=== PATIENT | female | born 1995 | race Caucasian/White ===

== ENCOUNTER 2019-06-18 17:30 | Emergency (ER) | payer OTHER ==
[2019-06-18 19:04] LABS: ABS Eosinophils 0.1 10^3/ul (0-0.6); ABS Lymphocytes 2.6 10^3/ul (1.0-4.8); ABS Monocytes 0.6 10^3/ul (0-0.8); ABS Neutrophils 4.2 10^3/ul (1.5-7.7); Eosinophil % 0.8 %; Hematocrit 36 % (35-47); Hemoglobin 11.9 g/dL (12.0-16.0); Lymphocyte % 34.2 %; Mean Corpuscular HGB Conc 33 g/dL (31-36); Mean Corpuscular Hemoglobin 26 pg (27-31); Mean Corpuscular Volume 79 fL (80-97); Mean Platelet Volume 8.1 fL (7.4-10.4); Platelet Count 328 10^3/uL (150-450); Red Blood Count 4.58 10^6 /uL (3.70-4.87); Red Cell Distribution Width 16 % (10-15); White Blood Count 7.5 10^3/uL (3.5-10.8)
[2019-06-18 19:24] LABS: ALT 12 U/L (7-52); AST 23 U/L (13-39); Albumin 4.7 g/dL (3.2-5.2); Albumin/Globulin Ratio 1.8 (1-3); Alkaline Phosphatase 45 U/L (34-104); Anion Gap 6 mmol/L (2-11); BUN/Creatinine Ratio 19.8 (8-20); Blood Urea Nitrogen 17 mg/dL (6-24); C Reactive Protein < 1.00 mg/L (<8.01); CO2 Carbon Dioxide 29 mmol/L (22-32); Calcium 10.2 mg/dL (8.6-10.3); Chloride 104 mmol/L (101-111); EGFR African American 99.8 (>60); EGFR Non-African American 82.5 (>60); Globulin 2.6 g/dL (2-4); Glucose 88 mg/dL (70-100); Potassium 3.6 mmol/L (3.5-5.0); Sodium 139 mmol/L (135-145); Total Protein 7.3 g/dL (6.4-8.9)
[2019-06-18 19:26] LABS: HCG Pregnancy < 0.60 mIU/mL
--- NOTE | 2019-06-19 00:07 | ED ---
Abdominal Pain/Female - HPI Summary HPI Summary: 24 year old F arriving via private car to [facility] complains of sudden onset abdominal pain described as burning that started after eating dinner 06/16 evening. She took Tums that night. She was feeling fine during the day on . She woke up Wed 06/17 AM with the same pain. She took Advil and Tums with no relief. She went to [facility] and was referred here. Patient has been unable to eat all day. She had 3 bowel movements today in which there were black spots. She reports abdominal bloating. No vomiting, diarrhea, urinary sx, fever. The patient rates the pain 9/10 initially in severity. She has no symptoms currently. Her abdominal pain has completely resolved since arrival to ED. 0/10 pain. Symptoms aggravated by nothing. Symptoms alleviated by Tums and Advil. LNMP 2 weeks ago. Medications reviewed. Allergies noted. - History of Current Complaint Chief Complaint: EDAbdPain Stated Complaint: ABD PAIN PER PT Time Seen by Provider: 06/19/19 00:01 Hx Obtained From: Patient Onset/Duration: Lasting Days - 2, Resolved Timing: Constant Severity Initially: Severe - 9/10 Severity Currently: None Pain Scale Used: 0-10 Numeric Location: Diffuse Character: Burning Aggravating Factor(s): Nothing Alleviating Factor(s): Medications - Tums, Advil Associated Signs and Symptoms: Positive: Negative - vomiting, diarrhea, urinary sx, fever, Other: - abdominal bloating Allergies/Adverse Reactions: Allergies Allergy/AdvReac Type Severity Reaction Status Date / Time No Known Allergies Allergy Verified 06/18/19 17:36 PMH/Surg Hx/FS Hx/Imm Hx Endocrine/Hematology History: Denies: Hx Diabetes Cardiovascular History: Denies: Hx Hypertension - Surgical History Surgical History: None Infectious Disease History: No Infectious Disease History: Denies: Traveled Outside the [place] in Last 30 Days - Family History Known Family History: Positive: Other - NEG: Cancer Negative: Hypertension, Diabetes - Social History Substance Use Type: Reports: None Hx Tobacco Use: No Smoking Status (MU): Never Smoked Tobacco Review of Systems Negative: Fever Positive: Abdominal Pain, Other - abdominal bloating. Negative: Vomiting, Diarrhea Positive: no symptoms reported All Other Systems Reviewed And Are Negative: Yes Physical Exam - Summary Physical Exam Summary: Appearance: Well-appearing, Well-nourished, lying in bed comfortably Skin: Warm, dry, no obvious rash Eyes: sclera anicteric, no conjunctival pallor HENT: mucous membranes moist, pharynx appears normal Neck: Supple, nontender Respiratory: Clear to auscultation, no signs of respiratory distress Cardiovascular: Normal S1, S2. No murmurs. Normal distal pulses in tibial and radial bilaterally. Abdomen: Soft, mild generalized abdominal tenderness, normal active bowel sounds present Musculoskeletal: Normal, Strength/ROM Intact Neurological: A&Ox3, awake and alert, mentation is normal, speech is fluent and appropriate Psychiatric: affect is normal, does not appear anxious or depressed Triage Information Reviewed: Yes Vital Signs On Initial Exam: Initial Vitals Temp Pulse Resp BP Pulse Ox 97.4 F 71 18 132/85 100 06/18/19 17:34 06/18/19 17:34 06/18/19 17:34 06/18/19 17:34 06/18/19 17:34 Vital Signs Reviewed: Yes Procedures - Sedation Patient Received Moderate/Deep Sedation with Procedure: No Diagnostics - Vital Signs Vital Signs Temp Pulse Resp BP Pulse Ox 06/18/19 21:40 98.7 F 72 14 98/51 100 06/18/19 19:35 98.3 F 80 18 109/68 96 06/18/19 17:34 97.4 F 71 18 132/85 100 - Laboratory Lab Results: Lab Results 06/18/19 06/18/19 Range/Units 18:52 18:52 WBC 7.5 (3.5-10.8) 10^3/uL RBC 4.58 (3.70-4.87) 10^6 /uL Hgb 11.9 L (12.0-16.0) g/dL Hct 36 (35-47) % MCV 79 L (80-97) fL MCH 26 L (27-31) pg MCHC 33 (31-36) g/dL RDW 16 H (10-15) % Plt Count 328 (150-450) 10^3/uL MPV 8.1 (7.4-10.4) fL Neut % (Auto) 56.1 % Lymph % (Auto) 34.2 % [place]ferro % (Auto) 8.4 % Eos % (Auto) 0.8 % Baso % (Auto) 0.5 % Absolute Neuts (auto) 4.2 (1.5-7.7) 10^3/ul Absolute Lymphs (auto) 2.6 (1.0-4.8) 10^3/ul Absolute Monos (auto) 0.6 (0-0.8) 10^3/ul Absolute Eos (auto) 0.1 (0-0.6) 10^3/ul Absolute Basos (auto) 0.0 (0-0.2) 10^3/ul Absolute Nucleated RBC 0.0 10^3/ul Nucleated RBC % 0.0 Sodium 139 (135-145) mmol/L Potassium 3.6 (3.5-5.0) mmol/L Chloride 104 (101-111) mmol/L Carbon Dioxide 29 (22-32) mmol/L Anion Gap 6 (2-11) mmol/L BUN 17 (6-24) mg/dL Creatinine 0.86 (0.51-0.95) mg/dL Est GFR ( Amer) 99.8 (>60) Est GFR (Non-Af Amer) 82.5 (>60) BUN/Creatinine Ratio 19.8 (8-20) Glucose 88 (70-100) mg/dL Calcium 10.2 (8.6-10.3) mg/dL Total Bilirubin 0.60 (0.2-1.0) mg/dL AST 23 (13-39) U/L ALT 12 (7-52) U/L Alkaline Phosphatase 45 (34-104) U/L C-Reactive Protein < 1.00 (<8.01) mg/L Total Protein 7.3 (6.4-8.9) g/dL Albumin 4.7 (3.2-5.2) g/dL Globulin 2.6 (2-4) g/dL Albumin/Globulin Ratio 1.8 (1-3) Lipase 29 (11.0-82.0) U/L Beta HCG, Quant < 0.60 mIU/mL Result Diagrams: 06/18/19 18:52 06/18/19 18:52 Lab Statement: Any lab studies that have been ordered have been reviewed, and results considered in the medical decision making process. Re-Evaluation - Re-Evaluation First Eval Re-Evaluation Time: 00:08 - patient agrees to d/c Abdominal Pain Fem Course/Dx - Course Course Of Treatment: 24 y/o F c/o sudden onset abdominal pain that started after eating dinner Tues 3/ evening. Upon initial encounter, patient reports no symptoms. Her abdominal pain has completely resolved since arrival to ED. Upon physical exam, she has mild generalized abdominal tenderness. Bloodwork results with no significant abnormalities. Patient will be discharged home with follow up from her primary care provider. Patient was instructed to return to Emergency Department for new or worsening symptoms. Patient understands and is agreeable to this plan. - Diagnoses Provider Diagnoses: Ruptured ovarian cyst Discharge ED - Sign-Out/Discharge Documenting (check all that apply): Patient Departure - Discharge Plan Condition: Good Disposition: HOME Patient Education Materials: Ruptured Ovarian Cyst (ED) Referrals: Ana Hannon NP [Primary Care Provider] - - Billing Disposition and Condition Condition: GOOD Disposition: Home - Attestation Statements Document Initiated by Scotte: Yes Documenting Scribe: Diana Mc Provider For Whom Cailin is Documenting (Include Credential): Lobo Barahona MD Scribe Attestation: Diana Solis, scribed for Lobo Barahona MD on 06/20/19 at 0230. Scribe Documentation Reviewed: Yes Provider Attestation: The documentation as recorded by the Diana silverman accurately reflects the service I personally performed and the decisions made by me, Lobo Barahona MD Status of Scribe Document: Viewed
[2019-06-19 01:37] VITALS: BP 99/62
== END 2019-06-19 01:36 | disposition home or self-care (01) ==
LOC: ED 17:30
DX: N83.299 Other ovarian cyst, unspecified side (principal); R10.9 Unspecified abdominal pain
CPT/HCPCS: 36415; 80053; 83690; 84702; 85025; 86140; 99282